=== PATIENT | male | born 1950 | race Caucasian/White ===

== ENCOUNTER → 2019-04-01 11:20 | Outpatient (BNVA) | payer MEDICARE, OTHER, SELFPAY | PROVIDERS: Family Provider Family Medicine; PCP Family Medicine; Visit Provider Urology | DX: R31.0 Gross hematuria (principal); N39.9 Disorder of urinary system, unspecified | CPT/HCPCS: 81001 ==

== ENCOUNTER 2019-05-05 12:19 | Outpatient (CLI) | payer MEDICARE, OTHER, SELFPAY ==
--- NOTE | 2019-05-05 | US_ITS ---
WS: [id number] Abdominal aortic ultrasound, 05/05/2019 Clinical Data: AAA Comparison: None. Findings: No aneurysm is noted. The abdominal aorta and its proximal portion measures 2.65 x 2.69 cm in AP and transverse dimensions respectively. In the midportion the abdominal aorta measures 2.18 x 1.97 AP and transverse dimensions respectively. The distal abdominal aorta measures 2.10 x 2.26 cm in AP and tra nsverse dimensions respectively. The left common iliac measures 1.42 x 1.51 cm in AP and transverse dimensions respectively. The right common iliac artery measures 1.48 x 1.71 cm in AP and transverse dimensions respectively. US/[place] retroperitoneal lmt [id number] Impression: Atherosclerotic dilatation of the abdominal aorta but no aneurysm is seen.
== END 2019-05-05 12:20 | disposition home or self-care (01) ==
LOC: RADOUTREAD 14:41
PROVIDERS: Family Provider Family Medicine; PCP Family Medicine; Visit Provider Family Medicine
DX: Z01.89 Encounter for other specified special examinations (principal)

== ENCOUNTER → 2019-11-15 10:08 | Outpatient (BNVA) | payer MEDICARE, OTHER, SELFPAY | PROVIDERS: Family Provider Family Medicine; PCP Family Medicine; Visit Provider Urology | DX: R31.0 Gross hematuria (principal) | CPT/HCPCS: 81001 ==

== ENCOUNTER 2019-12-21 11:12 | Outpatient (CLI) | payer MEDICARE, OTHER, SELFPAY ==
--- NOTE | 2019-12-21 11:17 | CT_ITS ---
WS: [id number] LDCT LUNG CANCER SCREENING TECHNIQUE: Noncontrast CT of the chest with coronal and sagittal reformatted images. CLINICAL INFORMATION: HX OF TOBACCO USE COMPARISON: CTA chest 7 ,019 DLP: 56.56 mGy.cm DIvol: 1.[address] scans at [facility] use at least one of these dose optimization techniques: automat ed exposure control; mA and/or kV adjustment per patient size (includes targeted exams where dose is matched to clinical indication); or iterative reconstruction. FINDINGS: Marked cardiomegaly with left ventricular enlargement. AICD.LVAD Mild chronic emphysematous changes. Calcified granuloma left upper lobe along the fissure. Slightly n odular interstitial infiltrates in the left lower lobe. Trace left pleural fluid. Fibrosis/subsegment al atelectasis right lower lobe along the diaphragm. Moderate esophageal hiatal hernia. CT/CT lung screening [id number] IMPRESSION: LUNG-RADS: 2-Benign Appearance or Behavior FOLLOW UP: 12 Month: Continue annual screening with LDCT
== END 2019-12-21 11:13 | disposition home or self-care (01) ==
LOC: CT 11:14
PROVIDERS: PCP Family Medicine; Visit Provider Family Medicine
DX: Z12.2 Encounter for screening for malignant neoplasm of respiratory organs (principal); Z87.891 Personal history of nicotine dependence; K44.9 Diaphragmatic hernia without obstruction or gangrene
CPT/HCPCS: G0297

== ENCOUNTER → 2020-04-09 08:56 | Day surgery (SDC) | payer MEDICARE, OTHER, SELFPAY ==
[2020-04-09] MEDS: ferric carboxy (IVPB) 750 MG in sodium chloride 0.9% (100 ml) 100 ML 345 MG IV (09:22)
[2020-04-09 09:33] VITALS: BMI 26.9
[2020-04-09 09:37] VITALS: PULSE 89; RESP 18; TEMP 36.8; O2SAT 94
== END ==
PROVIDERS: PCP Family Medicine; Visit Provider Internal Medicine
DX: D50.9 Iron deficiency anemia, unspecified (principal)
CPT/HCPCS: 96365; J1439

== ENCOUNTER → 2020-04-16 08:52 | Day surgery (SDC) | payer MEDICARE, OTHER, SELFPAY ==
[2020-04-16] MEDS: ferric carboxy (IVPB) 750 MG in sodium chloride 0.9% (100 ml) 100 ML 300 MG IV (09:16)
[2020-04-16 09:24] VITALS: PULSE 70; RESP 18; TEMP 36.9; O2SAT 98
== END ==
PROVIDERS: PCP Family Medicine; Visit Provider Internal Medicine
DX: Z95.811 Presence of heart assist device (principal)
CPT/HCPCS: 96365; J1439

== ENCOUNTER 2020-05-04 00:58 | Emergency (ER) | payer MEDICARE, OTHER, SELFPAY ==
--- NOTE | 2020-05-04 01:00 | ED_ITS ---
HPI - Chest Pain General: Chief Complaint: General Medical Stated Complaint: bad lvad Time Seen by Provider: 05/04/20 00:58 Source: patient and EMS Mode of arrival: EMS Limitations: no limitations History of Present Illness: HPI narrative: 69-year-old male who has an LVAD device. His provider TIESHA in [place] is called me before his arrival informed me that his battery went out when he took to backup his pump it failed. She states this can happen with these devices. She is wanting him to be transferred up there immediately. Patient here is well-appearing is awake and alert with a heart rate of 100. He has no weakness or syncope. He denies any pain. His device is alarming. He states that he ran out of batteries earlier today. Associated symptoms: Deny abdominal pain, dyspnea, fever(s), nausea or vomiting Review of Systems Const: Denies: fever(s), chills, body aches or change in appetite Eyes: Denies: blurry vision or eye discomfort ENMT: Denies: throat pain or dental pain Card: Denies: chest pain Resp: Denies: dyspnea GI: Denies: abdominal pain, nausea, vomiting or diarrhea : Denies: dysuria Musc: Denies: neck pain or back pain Skin/Breast: Denies: rash Neuro: Denies: headache(s) Psych: Denies: depression Tre/Lymph: Denies: easy bruising All/Imm: Denies: urticaria PFSH ED PFSH: Medical History (Updated 05/04/20 @ 01:00 by Kari Law MD) Atrial fibrillation Gross hematuria LVAD (left ventricular assist device) present Male erectile dysfunction, unspecified Nonischemic cardiomyopathy Surgical History History of tonsillectomy and adenoidectomy Family History Father , AT AGE 85 Alzheimer disease Mother , AT AGE 89 Breast cancer Heart disease Social History Smoking and tobacco status: former smoker Alcohol intake: never Adopted: No Caregiver/support person: No Lives independently: No Household members: spouse Marital status: Current occupational status: retired History of recent travel: No Current gender identity: Male Physical Exam Const: COMMON NORMALS: no acute distress, patient oriented x3 and healthy appearing HENMT: COMMON NORMALS: normocephalic and atraumatic HEAD & SCALP: normocephalic and atraumatic Eye: COMMON NORMALS: Equal, round and reactive pupils present and EOMs intact bilaterally PUPIL: Yes Equal, round and reactive pupils present Neck/C-Spine: COMMON NORMALS: full ROM and supple Chest: COMMONS NORMALS: normal inspection of the chest and normal palpation of entire chest wall Resp: COMMON NORMALS: normal respiratory effort, No retractions, No use of accessory muscles and clear to auscultation bilaterally AUSCULTATION: clear to auscultation bilaterally Cardio: COMMON NORMALS: regular rate, regular rhythm and No murmurs present (Cardio) RATE: regular rate RHYTHM: regular rhythm GI: COMMON NORMALS: Normal to inspection, nondistended, normoactive bowel sounds present, Soft to palpation, non-tender and no masses PALPATION: Yes Soft to palpation Extremity: COMMON NORMALS: normal to inspection and full ROM Neuro: COMMON NORMALS: patient oriented x3, moves all extremities and no focal motor deficits Psych: COMMON NORMALS: mental status grossly normal, Normal thought process present and cooperative MOOD & AFFECT: Yes anxious THOUGHT PROCESS: Normal thought process present Skin: COMMON NORMALS: no rashes or lesions noted and no wounds GENERAL SKIN EXAM: no rashes or lesions noted Course Vital Signs: Vital signs: Vital Signs Temperature 98.8 F 05/04/20 01:01 Pulse Rate 101 H 05/04/20 01:01 Respiratory Rate 16 05/04/20 01:01 Pulse Oximetry 92 05/04/20 01:01 MDM - Chest Pain MDM Narrative: Medical decision making narrative: Patient presents with an LVAD malfunction. And spoke to Joana with the cardiac thoracic team at . Patient will be transferred there by ground his called for air but they are not flying due to weather. Patient here is well-appearing and stable here. Patient did have IV started and started on dobutamine drip at request of CT surgeon. Patient transferred there for higher level of care for likely pump replacement by CT surgery there. Lab Data: Labs: Lab Results 05/04/20 Range/Units 01:00 WBC 6.8 (4.0-10.0) 10^3/ uL RBC 3.99 L (4.1-5.3) 10^6/u L Hgb 11.7 (11.7-16.6) g/dL Hct 36.8 L (42.0-52.0) % MCV 92.2 (80-94) fL MCH 29.3 (28.0-34.0) pg MCHC 31.8 (30.0-36.0) g/dL RDW 15.3 H (12.1-15.1) % Plt Count 84 L (130-400) 10^3/c mm MPV 12.9 H (7.4-10.4) fL Neut % (Auto) 68.2 % Lymph % (Auto) 19.3 % [place] % (Auto) 6.7 % Eos % (Auto) 4.2 % Baso % (Auto) 1.3 % Neut # (Auto) 4.65 (1.8-7.7) 10^3/u L Lymph # (Auto) 1.3 (0.8-4.8) 10^3/u L [place] # (Auto) 0.5 (0.2-0.9) 10^3/u L Eos # (Auto) 0.3 (0.0-0.8) 10^3/u L Baso # (Auto) 0.1 (0.0-0.1) 10^3/u L Nucleated RBC % (a uto) 0 % Nucleated RBCs # 0.0 /100WBC Critical Care Time Critical Care Time: Critical Care Time: Yes Total Critical Care Time: 35 Attestation: This case had a high probability of a clinically significant, sudden, or life threatening deterioration of this patient's condition which required my full and direct attention, intervention and personal management. Discharge Plan Discharge Patient Disposition: Xfer Short-Term Hosp Clinical Impression: LVAD (left ventricular assist device) present Complication involving left ventricular assist device (LVAD) Qualifiers: Encounter type: initial encounter Qualified Code(s): T82.9XXA - Unspecified complication of cardiac and vascular prosthetic device, implant and graft, initial encounter Condition: Stable Discharge Orders: Transfer Out of Facility (Order); Ordered 05/04/20 Ordered By: Kari Law Referrals: Kermit Titus MD [Primary Care Provider] - Coding Level of Care Code ED Tetryl Nitrator Operator for Chg Fwd Exam Comprehensive
[2020-05-04 01:01] VITALS: PULSE 101; RESP 16; TEMP 37.1; O2SAT 92; BMI 26.5
[2020-05-04 01:08] VITALS: BP 88/56; PULSE 100; RESP 15; O2SAT 93
[2020-05-04 01:14] LABS: Basophils # 0.1 10^3/uL (0.0-0.1); Basophils % 1.3 %; Eosinophils # 0.3 10^3/uL (0.0-0.8); Eosinophils % 4.2 %; Hematocrit 36.8 % (42.0-52.0); Hemoglobin 11.7 g/dL (11.7-16.6); Lymphocytes # 1.3 10^3/uL (0.8-4.8); Lymphocytes % 19.3 %; Mean Corpuscular HGB Conc 31.8 g/dL (30.0-36.0); Mean Corpuscular Hemoglobin 29.3 pg (28.0-34.0); Mean Corpuscular Volume 92.2 fL (80-94); Mean Platelet Volume 12.9 fL (7.4-10.4); Monocytes # 0.5 10^3/uL (0.2-0.9); Monocytes % 6.7 %; Neutrophils # 4.65 10^3/uL (1.8-7.7); Neutrophils % 68.2 %; Nucleated Red Blood Cells % 0 %; Platelet Count 84 10^3/cmm (130-400); Red Blood Count 3.99 10^6/uL (4.1-5.3); Red Cell Distribution Width 15.3 % (12.1-15.1); White Blood Count 6.8 10^3/uL (4.0-10.0)
--- NOTE | 2020-05-04 01:17 | PC.NURSE ---
Bartolo Martinez APRN from on phone with staff. Dr Martinez giving order to disconnect LVAD at this time reporting that LVAD is not working and has not been working for over an hour.
[2020-05-04 01:21] LABS: Alanine Aminotransferase 11 U/L (0-41); Albumin Level 3.6 g/dL (3.5-5.2); Alkaline Phosphatase 58 IU/L (40-130); Anion Gap 13.3 (5-19); Aspartate Amino Transferase 13 U/L (0-40); Blood Urea Nitrogen 17 mg/dL (8-23); Calcium 7.8 mg/dL (8.5-10.5); Carbon Dioxide 23 mmol/L (22-29); Chloride 105 mmol/L (98-107); Globulin 2.5 g/dL (1.3-4.6); Glucose 196 mg/dL (65-115); Osmolality Calculated 291 mOsm/kg (285-295); Potassium 4.3 mmol/L (3.5-5.1); Sodium 137 mmol/L (136-145); Total Bilirubin 0.3 mg/dL (0.15-1.2); Total Protein 6.1 g/dL (6.6-8.7)
[2020-05-04] MEDS: DOBUTamine drip 500 MG/250 ML PREMIX 12.6 MG IV (01:23)
[2020-05-04 01:40] VITALS: PULSE 102; RESP 22; O2SAT 97
== END 2020-05-04 01:35 | disposition short-term general hospital (02) ==
LOC: ER 01:06
PROVIDERS: Emergency Provider Emergency Medicine; PCP Family Medicine
DX: T82.9XXA Unspecified complication of cardiac and vascular prosthetic device, implant and graft, initial encounter (principal); Z95.811 Presence of heart assist device; I48.91 Unspecified atrial fibrillation; Z87.891 Personal history of nicotine dependence
CPT/HCPCS: 80053; 85025; 96365; 99285; J1250